=== PATIENT | female | born 1965 | race Caucasian/White ===

== ENCOUNTER 2020-05-26 15:40 | Emergency (ER) | payer OTHER ==
[~2020-05-26] VITALS: Ht 167.6 cm; Wt 73.1 kg
[2020-05-26 15:50] VITALS: BP 129/85
--- NOTE | 2020-05-26 16:09 | NUR ---
DR. DUNBAR EVALUATING PT AT BEDSIDE
[2020-05-26] MEDS ORDERED: CYCLOBENZAPRINE 10 MG TAB PO ONE (16:15)
[2020-05-26] MEDS ORDERED: KETOROLAC 30 MG/ML VIAL IM ONE (16:15)
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
--- NOTE | 2020-05-26 16:31 | NUR ---
TO CT SCAN VIA W/C
[2020-05-26 17:31] VITALS: BP 129/85
--- NOTE | 2020-05-26 17:31 | NUR ---
Patient discharged with v/s stable. Written and verbal after care instructions given and explained. Patient alert, oriented and verbalized understanding of instructions. Ambulatory with steady gait. All questions addressed prior to discharge. ID band removed. Patient advised to follow up with PMD. Rx of FLEXERIL & NAPROSYN given. Patient educated on indication of medication including possible reaction and side effects. Opportunity to ask questions provided and answered.
== END 2020-05-26 17:31 | disposition home or self-care (01) ==
LOC: MED 15:40
DX: S13.9XXA Sprain of joints and ligaments of unspecified parts of neck, initial encounter (principal); R51.9 Headache, unspecified; M79.10 Myalgia, unspecified site; V89.2XXA Person injured in unspecified motor-vehicle accident, traffic, initial encounter; Y93.89 Activity, other specified; Y92.89 Other specified places as the place of occurrence of the external cause; Y99.8 Other external cause status
CPT/HCPCS: 70450; 72125; 96372; 99285; J1885

== ENCOUNTER 2020-06-01 10:39 | Emergency (ER) | payer OTHER ==
[~2020-06-01] VITALS: Ht 167.6 cm; Wt 73.9 kg
[2020-06-01 10:49] VITALS: BP 132/88
--- NOTE | 2020-06-01 10:56 | NUR ---
PT AMB TO BED 12
[2020-06-01] MEDS ORDERED: KETOROLAC 60 MG/2 ML VIAL IM ONE (11:00)
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
[2020-06-01 12:56] VITALS: BP 128/86
--- NOTE | 2020-06-01 12:56 | NUR ---
Patient discharged with v/s stable. Written and verbal after care instructions given and explained. Patient alert, oriented and verbalized understanding of instructions. Ambulatory with steady gait. All questions addressed prior to discharge. ID band removed. Patient advised to follow up with PMD. Rx of MOTRIN AND NORCO given. Patient educated on indication of medication including possible reaction and side effects. Opportunity to ask questions provided and answered.
== END 2020-06-01 12:56 | disposition home or self-care (01) ==
LOC: MED 10:39
DX: S20.219A Contusion of unspecified front wall of thorax, initial encounter (principal); Z90.49 Acquired absence of other specified parts of digestive tract; V89.2XXA Person injured in unspecified motor-vehicle accident, traffic, initial encounter; Y93.89 Activity, other specified; Y92.89 Other specified places as the place of occurrence of the external cause; Y99.8 Other external cause status
CPT/HCPCS: 71101; 96372; 99283; J1885

== ENCOUNTER 2020-08-22 12:29 | Emergency (ER) | payer SELFPAY ==
[~2020-08-22] VITALS: Ht 162.6 cm; Wt 73.9 kg
[2020-08-22 12:38] VITALS: BP 116/84
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
--- NOTE | 2020-08-22 13:27 | NUR ---
Dr Handy examining patient
[2020-08-22 15:05] VITALS: BP 116/84
--- NOTE | 2020-08-22 15:05 | NUR ---
Patient discharged with v/s stable. Written and verbal after care instructions given and explained. Patient alert, oriented and verbalized understanding of instructions. Ambulatory with steady gait. All questions addressed prior to discharge. ID band removed. Patient advised to follow up with PMD. Rx of Loratidine and [id number] given. Patient educated on indication of medication including possible reaction and side effects. Opportunity to ask questions provided and answered.
== END 2020-08-22 15:05 | disposition home or self-care (01) ==
LOC: MED 12:29
DX: N83.201 Unspecified ovarian cyst, right side (principal); R31.29 Other microscopic hematuria
CPT/HCPCS: 76830; 81002; 81025; 99284